=== PATIENT | female | born 1990 | race Two or more races ===

== ENCOUNTER 2017-01-10 03:21 | Emergency (ER) | payer SELFPAY ==
[~2017-01-10] VITALS: Ht 175.3 cm; Wt 113.0 kg
[2017-01-10 03:25] VITALS: BP 133/51
== END 2017-01-10 08:10 | disposition home or self-care (01) ==
LOC: ER 03:21
DX: Z00.00 Encounter for general adult medical examination without abnormal findings (principal)
CPT/HCPCS: 82962; 99283